=== PATIENT | female | born 1965 | race Two or more races ===

== ENCOUNTER → 2022-11-04 | Outpatient (CLI) | payer OTHER | END | disposition home or self-care (01) | LOC: SONOGRAMA 10:45 | PROVIDERS: ATTEND Pathology Anatomic Pathology & Clinical Pathology | DX: D34 Benign neoplasm of thyroid gland (principal); E04.9 Nontoxic goiter, unspecified; E04.2 Nontoxic multinodular goiter ==

== ENCOUNTER 2024-02-20 12:34 | Inpatient (IN) | payer OTHER ==
[~2024-02-20] VITALS: Ht 66 cm; Wt 81.6 kg
--- NOTE | 2024-02-20 12:36 | NUR ---
PACIENTE ALERTA Y ORIENTADA X 3. REFIERE RISHABH EN LA TARDE SE LE PUSO TODO SHANTELLE Y SE DESMAYO. REFIERE DESCONOCER CUANTO TIEMPO PERDIO EL CONOCIMIENTO, SOLO SABE QUE DAVID DE LADO Y DESPERTO EN PISO. LUEGO DE ESTO REFIERE TENER DOLOR DE HERBIE Y MOLESTIA EN EL LADO IZQ DEL FATOU.
[2024-02-20] MEDS ORDERED: CLARITIN10 M1 (12:41)
[2024-02-20] MEDS ORDERED: GLUMETZA500 MG (12:41)
[2024-02-20] MEDS ORDERED: ZESTRIL10 M1 (12:42)
[2024-02-20] MEDS ORDERED: SINGULAIR10 MG PO (12:42)
[2024-02-20] MEDS ORDERED: PROTONIX40 MG PO (12:42)
[2024-02-20] MEDS ORDERED: ATORVASTATIN CA10 MG PO (12:42)
[2024-02-20] MEDS ORDERED: SPIRIVA RESPIMAT4 G1 IH (12:43)
[2024-02-20] MEDS ORDERED: RESTORIL30 MG PO (12:44)
[2024-02-20] MEDS ORDERED: BREO ELLIPTA 21 EACH IH (12:44)
[2024-02-20] MEDS ORDERED: ECOTRIN81 MG (12:44)
[2024-02-20] MEDS ORDERED: XELPROS2.5 ML (12:45)
[2024-02-20] MEDS ORDERED: TOPROL XL25 M1 (12:45)
[2024-02-20] MEDS ORDERED: CLONAZEPAM0.5 MG PO (12:45)
[2024-02-20] MEDS ORDERED: DULOXETINE HCL40 MG (12:45)
[2024-02-20] MEDS ORDERED: DAFLONEX-XL 11300 MG PO (12:46)
--- NOTE | 2024-02-20 13:22 | NUR ---
SE ORIENTA PTE SOBRE TX, REFIERE ENTENDER Y ACEPTAR, RN [place] LE LIAM M[facility]RAS DE [facility]ATOR[facility] Y LE CANALIZA MALLORY ORDEN MEDICA Y BAJO MEDIDAS ASEPTICAS.
[2024-02-20 13:43] LABS: HEMATOCRIT 36.7 % (36.0-45.00); HEMOGLOBIN 12.4 g/dL (12.0-15.00); MEAN CELL VOLUME 88.5 fL (80.00-100.00); MEAN CORPUSCULAR HGB CONC 33.9 g/dl (32.0-36.0); PLATELET COUNT 232 K/uL (150-450); RED BLOOD COUNT 4.14 M/uL (4.00-6.00); RED CELL DISTRIBUTION WIDTH 14.3 % (11.5-14.5)
[2024-02-20 13:59] LABS: INR 1.04; PROTHROMBIN TIME 10.9 SECONDS (9.0-11.5)
[2024-02-20 14:17] LABS: CALCIUM 9.4 mg/dL (8.5-10.1); CREATININE SERUM 0.62 mg/dL (0.55-1.02); GFR 98.19; POTASSIUM 4.32 mEq/L (3.5-5.1)
[2024-02-20 14:41] LABS: URINE APPEARANCE Clear; URINE BILIRRUBIN Negative (NEGATIVE); URINE BLOOD Negative; URINE COLOR Yellow; URINE GLUCOSE Negative (NEGATIVE); URINE LEUKOCYTE Negative; URINE NITRATE Negative; URINE PROTEIN Negative (NEGATIVE); URINE UROBILINOGEN 0.2 E.U./dl
[2024-02-20 14:45] LABS: URINE BACTERIA 54.1 uL (0.0-1933); URINE WBC 4.6 uL (0.0-23.2)
[2024-02-20] MEDS ORDERED: 0.9 % SODIUM CHLORIDE 1,000 ML IV SCH (17:30)
[2024-02-20] MEDS ORDERED: INSULIN LISPRO 1,000 UNIT/10 ML UNITS SUBCUTANEO PRN (17:45)
[2024-02-20] MEDS ORDERED: ACETAMINOPHEN 500 MG GEL..CAP PO PRN (17:45)
[2024-02-20] MEDS ORDERED: DEXTROSE 50 % IN WATER 0.5 G/ML DISP.SYRIN IV PRN (17:45)
[2024-02-20] MEDS ORDERED: ONDANSETRON HCL 4 MG in 0.9 % SODIUM CHLORIDE 50 ML IV PRN (17:45)
[2024-02-20] MEDS ORDERED: CLONAZEPAM 0.5 MG TABLET PO SCH (21:00)
[2024-02-21] MEDS ORDERED: Duloxetine HCl 30 MG CAPSULE.DR PO SCH (09:00)
[2024-02-21] MEDS ORDERED: LISINOPRIL 10 MG TABLET PO SCH (09:00)
[2024-02-21] MEDS ORDERED: LORATADINE 10 MG TABLET PO SCH (09:00)
[2024-02-21] MEDS ORDERED: ENOXAPARIN SODIUM 40 MG/0.4 ML SYRINGE SUBCUTANEO SCH (09:00)
[2024-02-21] MEDS ORDERED: METOPROLOL SUCCINATE 25 MG TAB.SR.24H PO SCH (09:00)
[2024-02-21] MEDS ORDERED: ATORVASTATIN CALCIUM 10 MG TABLET PO SCH (09:00)
[2024-02-21] MEDS ORDERED: ASPIRIN 81 MG TAB.CHEW PO SCH (09:00)
[2024-02-21] MEDS ORDERED: MONTELUKAST SODIUM 10 MG TABLET PO SCH (17:00)
[2024-02-22] MEDS ORDERED: BUTALB/ACETAMINOPHEN/CAFFEINE 1 TAB TABLET PO PRN (09:30)
[2024-02-22] MEDS ORDERED: BUTALB-ACETAMI1 EAC2 PO (19:08)
[2024-02-22] MEDS ORDERED: LORATADINE10 MG PO (19:08)
[2024-02-22] MEDS ORDERED: TUSSI PRES-B L480 ML PO (19:08)
[2024-02-22] MEDS ORDERED: LEVOFLOXACIN750 MG PO (19:08)
[2024-02-22] MEDS ORDERED: MONTELUKAST SOD10 MG PO (19:08)
== END 2024-02-22 21:15 | disposition home or self-care (01) | DRG 153 ==
LOC: ER 12:35 → MEDI 18:08 → MEDJ 18:08 → SEC-K 18:19 → MEDJ 19:08
PROVIDERS: Emergency Medicine; ADMIT Internal Medicine; ATTEND Internal Medicine
PROC: BW28YZZ Computerized Tomography (CT Scan) of Head using Other Contrast (ICD-10-PCS; principal; 2024-02-20)
PROC: B030YZZ Magnetic Resonance Imaging (MRI) of Brain using Other Contrast (ICD-10-PCS; 2024-02-20)
PROC: B345ZZZ Ultrasonography of Bilateral Common Carotid Arteries (ICD-10-PCS; 2024-02-20)
PROC: B24BZZZ Ultrasonography of Heart with Aorta (ICD-10-PCS; 2024-02-20)
PROC: 4A12X4Z Monitoring of Cardiac Electrical Activity, External Approach (ICD-10-PCS; 2024-02-21)
DX: J01.90 Acute sinusitis, unspecified (principal); R55 Syncope and collapse; E86.0 Dehydration; J31.0 Chronic rhinitis; K52.9 Noninfective gastroenteritis and colitis, unspecified; I10 Essential (primary) hypertension; E78.5 Hyperlipidemia, unspecified
CPT/HCPCS: 70552

== ENCOUNTER 2024-07-03 14:40 | Emergency (ER) | payer OTHER ==
[~2024-07-03] VITALS: Ht 157.5 cm; Wt 85.7 kg
[~2024-07-03 14:40] MED LIST: ATORVASTATIN CA10 MG PO; BREO ELLIPTA 21 EACH IH; BUTALB-ACETAMI1 EAC2 PO; CLARITIN10 M1; CLONAZEPAM0.5 MG PO; DAFLONEX-XL 11300 MG PO; DULOXETINE HCL40 MG; ECOTRIN81 MG; GLUMETZA500 MG; LEVOFLOXACIN750 MG PO; LORATADINE10 MG PO; MONTELUKAST SOD10 MG PO; PROTONIX40 MG PO; RESTORIL30 MG PO; SINGULAIR10 MG PO; SPIRIVA RESPIMAT4 G1 IH; TOPROL XL25 M1; TUSSI PRES-B L480 ML PO; XELPROS2.5 ML; ZESTRIL10 M1
[2024-07-03] MEDS ORDERED: KETOROLAC TROMETHAMINE 30 MG VIAL IM STA (18:25)
[2024-07-03] MEDS ORDERED: ORPHENADRINE CITRATE 30 MG/ML AMPUL IM STA (18:26)
[2024-07-03 19:24] LABS: HEMATOCRIT 36.7 % (36.0-45.00); HEMOGLOBIN 12.5 g/dL (12.0-15.00); MEAN CELL VOLUME 85.6 fL (80.00-100.00); MEAN CORPUSCULAR HEMOGLOBIN 29.1 pg (27.00-32.0); MEAN CORPUSCULAR HGB CONC 34.1 g/dl (32.0-36.0); PLATELET COUNT 248 K/uL (150-450); RED BLOOD COUNT 4.29 M/uL (4.00-6.00); RED CELL DISTRIBUTION WIDTH 16.2 % (11.5-14.5)
[2024-07-03 19:47] LABS: URINE APPEARANCE Clear; URINE BILIRRUBIN Negative (NEGATIVE); URINE BLOOD Negative; URINE COLOR Yellow; URINE GLUCOSE Negative (NEGATIVE); URINE KETONE Negative (NEGATIVE); URINE LEUKOCYTE Negative; URINE NITRATE Negative; URINE PROTEIN Negative (NEGATIVE); URINE UROBILINOGEN 0.2 E.U./dl
[2024-07-03 19:50] LABS: URINE BACTERIA 100.7 uL (0.0-1933); URINE EPITHELIAL CELLS 5.2 uL (0.0-38.8); URINE RBC 2.1 uL (0.0-20.8); URINE WBC 2.7 uL (0.0-23.2)
[2024-07-03 20:04] LABS: CALCIUM 9.6 mg/dL (8.5-10.1); CREATININE SERUM 0.65 mg/dL (0.55-1.02); GFR 92.66; POTASSIUM 3.56 mEq/L (3.5-5.1)
[2024-07-03 20:08] LABS: URINE CAST 0.15 uL (0.0-1.40)
[2024-07-03 23:44] LABS: AMYLASE 51 U/L (25-115); LIPASE 32 U/L (13-75)
[2024-07-04] MEDS ORDERED: KETOROLAC TROMETHAMINE 30 MG VIAL IV STA (01:53)
[2024-07-04] MEDS ORDERED: ORPHENADRINE CITRATE 30 MG/ML AMPUL IV STA (01:53)
[2024-07-04] MEDS ORDERED: NORFLEX100MG PO (05:01)
[2024-07-04] MEDS ORDERED: MELOXICAM15 MG PO (05:01)
== END 2024-07-04 05:55 ==
LOC: ER 14:40
PROVIDERS: General Practice
DX: M54.50 Low back pain, unspecified (principal); E11.9 Type 2 diabetes mellitus without complications; Z79.84 Long term (current) use of oral hypoglycemic drugs; I10 Essential (primary) hypertension; Z87.09 Personal history of other diseases of the respiratory system
CPT/HCPCS: 36415; 72131; 74176; 96365; 96372; 99284; J1885; J2360